=== PATIENT | male | born 1975 | race Two or more races ===

== ENCOUNTER 2017-02-10 22:23 | Observation (INO) | payer SELFPAY ==
[2017-02-10] MEDS ORDERED: Sodium Chloride 0.9% 1,000 ML IV STA (22:50)
--- NOTE | 2017-02-11 00:11 | ED PDOC ---
HPI: Psych/Substance Abuse Time Seen by Provider: 02/10/17 22:36 Chief Complaint (Nursing): Altered Mental Status Chief Complaint (Provider): alcohol intoxication ED Caveat: Intoxicated History/Exam Limitations: intoxication Additional Complaint(s): Found by police with his pants at his ankles, appeared intoxicated so ambulance called to bring patient to ER. Pt not providing any history. Past Medical History Reviewed: Nursing Documentation (and EMS report), Vital Signs Vital Signs: Last Vital Signs Temp 98.7 F 02/10/17 22:31 Pulse 98 H 02/10/17 22:31 Resp 18 02/10/17 22:31 BP 136/66 02/10/17 22:31 Pulse Ox 99 02/10/17 22:31 - Medical History Other PMH: unknown - Surgical History Other surgeries: Unknown - Family History Family History: States: Unknown Family Hx - Allergies Allergies/Adverse Reactions: Allergies Allergy/AdvReac Type Severity Reaction Status Date / Time No Known Allergies Allergy Unverified 03/14/14 15:22 Review of Systems Review Of Systems: ROS cannot be obtained secondary to pt's inabilty to answer questions. Physical Exam - Reviewed Nursing Documentation Reviewed: Yes Vital Signs Reviewed: Yes - Physical Exam Appears: Positive for: No Acute Distress (lethargic) Head Exam: Positive for: ATRAUMATIC, NORMOCEPHALIC Skin: Positive for: Normal Color (except for ruddiness of face), Warm, Dry Eye Exam: Positive for: Conjunctival injection ENT: Positive for: Other (tacky mucus membranes) Neck: Positive for: Painless ROM, Supple Cardiovascular/Chest: Positive for: Regular Rate, Rhythm, Chest Non Tender. Negative for: Murmur Respiratory: Negative for: Accessory Muscle Use, Respiratory Distress Gastrointestinal/Abdominal: Positive for: Soft. Negative for: Distended Back: Positive for: Normal Inspection. Negative for: Decreased ROM Extremity: Negative for: Pedal Edema, Deformity Lymphatic: Negative for: Adenopathy Neurologic/Psych: Positive for: Alert. Negative for: Motor/Sensory Deficits - Laboratory Results Result Diagrams: 02/10/17 23:59 02/10/17 23:59 - ECG O2 Sat by Pulse Oximetry: 99 Disposition - Clinical Impression Clinical Impression: Alcohol intoxication - Disposition Disposition: Transfer of Care Disposition Time: 00:00 Condition: STABLE Patient Signed Over To: Meño Welsh Handoff Comments: Pending sobriety, reassessmetn and final ER disposition
--- NOTE | 2017-02-11 00:18 | ED PDOC ---
- Laboratory Results Result Diagrams: 02/10/17 23:59 02/10/17 23:59 - ECG O2 Sat by Pulse Oximetry: 99 (RA) Pulse Ox Interpretation: Normal Medical Decision Making Medical Decision Making: *See ED-OBS tab for all documentation Scribe Attestation: Documented by Lulu Sorto, acting as a scribe for Meño Welsh MD Provider Scribe Attestation: All medical record entries made by the Scribe were at my direction and personally dictated by me. I have reviewed the chart and agree that the record accurately reflects my personal performance of the history, physical exam, medical decision making, and the department course for this patient. I have also personally directed, reviewed, and agree with the discharge instructions and disposition. Disposition Counseled Patient/Family Regarding: Diagnosis, Need For Followup - Clinical Impression Clinical Impression: Alcohol intoxication - POA Present On Arrival: None - Disposition Disposition: Routine/Home Disposition Time: 22:30 Condition: STABLE ED OBSERVATION Date of observation admission: 02/10/17 Time of observation admission: 22:30 - Observation admission statement Patient is being placed in observation because:: Alcohol intoxication - Goals of Observation Goals of observation are:: Clinical sobriety - Progress Note Progress Note: 02/11/17 Time: 0:00 --Patient is signed out by Dr. Bria Bernal MD to [place], pending labs and sobriety --Patient is resting comfortably. Vital signs stable. Time: 01:30 --Patient continues to rest. Vital signs stable. Time: 03:00 --Patient is resting. Vital signs stable. Time: 04:30 --Patient continues to rest. Vital signs stable. Time: 05:27 --Patient is ambulating in the ED and speaking in full sentences. Requesting to go home. --Patient appears clinically sober and is medically stable for discharge. Clinical Impression: Alcohol intoxication
[2017-02-11 00:20] LABS: BASO # 0.1 K/uL (0.0-0.2); BASO % 1.4 % (0.0-2.0); EOS # 0.2 K/uL (0.0-0.7); EOS % 2.2 % (0.0-4.0); LYMPH # 3.1 K/uL (1.0-4.3); LYMPH % 43.3 % (20.0-40.0); MEAN CELL VOLUME 91.9 fl (80.0-94.0); MEAN CORPUSCULAR HEMOGLOBIN 30.5 pg (27.0-31.0); MEAN CORPUSCULAR HGB CONC 33.2 g/dL (33.0-37.0); MEAN PLATELET VOLUME 8.5 fl (7.2-11.7); MONO # 0.6 K/uL (0.0-0.8); MONO % 8.1 % (0.0-10.0); NEUT # 3.2 K/uL (1.8-7.0); NRBC % 0.1 % (0.0-0.0); RED CELL DISTRIBUTION WIDTH 13.6 % (11.5-14.5); WHITE BLOOD COUNT 7.1 K/uL (4.8-10.8)
[2017-02-11 00:35] LABS: ALB/GLOB RATIO 1.4 (1.0-2.1); ALKALINE PHOSPHATASE 65 U/L (38-126); ALT/SGPT 63 U/L (21-72); AST/SGOT 54 U/L (17-59); BILIRUBIN,TOTAL 0.6 mg/dl (0.2-1.3); BLOOD UREA NITROGEN 13 mg/dl (9-20); CARBON DIOXIDE 22 mmol/L (22-30); CHLORIDE 105 mmol/L (98-107); GFR AFRICAN-AMERICAN > 60; GLUCOSE,RANDOM 107 mg/dL (75-110); POTASSIUM 3.4 MMOL/L (3.6-5.0); SODIUM 147 mmol/l (132-148); TOTAL PROTEIN 7.7 G/DL (6.3-8.2)
[2017-02-11 00:47] LABS: ALCOHOL SERUM 431 mg/dl (0-10)
[2017-02-11 05:58] VITALS: BP 136/79; PULSE 76; RESP 16; TEMP 98.6
[2017-02-11 18:51] VITALS: O2SAT 99
== END 2017-02-11 05:28 | disposition home or self-care (01) ==
LOC: H.ER 22:23 → H.EROBSV 22:30
PROVIDERS: ADMIT Emergency Medicine; ATTEND Emergency Medicine
DX: F10.129 Alcohol abuse with intoxication, unspecified (principal); Y90.8 Blood alcohol level of 240 mg/100 ml or more
CPT/HCPCS: 36415; 80053; 82948; 85025; 99283; G0378; G0480

== ENCOUNTER 2017-02-11 17:50 | Emergency (ER) | payer SELFPAY ==
[2017-02-11 17:57] VITALS: BP 141/83; PULSE 95; RESP 20; TEMP 98.1; O2SAT 99
--- NOTE | 2017-02-11 18:12 | ED PDOC ---
HPI: Psych/Substance Abuse Time Seen by Provider: 02/11/17 18:05 Chief Complaint (Nursing): Alcohol Ingestion Chief Complaint (Provider): alcohol intoxication Modifying Factor(s): Alcohol Additional Complaint(s): Pt reports to me he wants to leave. Denies homicidal or suicidal ideations. Seen yesterday for alcohol intoxication as well and discharged early this morning. Admits he has been continuing to drink today. Past Medical History Reviewed: Historical Data, Nursing Documentation, Vital Signs Vital Signs: Last Vital Signs Temp 98.1 F 02/11/17 17:54 Pulse 95 H 02/11/17 17:54 Resp 20 02/11/17 17:54 BP 141/83 02/11/17 17:54 Pulse Ox 99 02/11/17 17:54 - Family History Family History: States: Unknown Family Hx - Allergies Allergies/Adverse Reactions: Allergies Allergy/AdvReac Type Severity Reaction Status Date / Time No Known Allergies Allergy Unverified 03/14/14 15:22 Review of Systems Neurological: Negative for: Weakness, Numbness Psych: Negative for: Depression, Suicidal ideation Physical Exam - Reviewed Nursing Documentation Reviewed: Yes Vital Signs Reviewed: Yes - Physical Exam Appears: Positive for: No Acute Distress Head Exam: Positive for: ATRAUMATIC, NORMOCEPHALIC Skin: Positive for: Warm, Dry Extremity: Positive for: Normal ROM. Negative for: Deformity Neurologic/Psych: Positive for: Alert, Gait (steady). Negative for: Motor/ Sensory Deficits - ECG O2 Sat by Pulse Oximetry: 99 Disposition - Clinical Impression Clinical Impression: Alcohol abuse with intoxication - Disposition Disposition: Routine/Home Disposition Time: 18:14 Condition: STABLE Instructions: Alcohol Intoxication (ED), Alcohol Dependence (ED)
== END 2017-02-11 18:18 | disposition home or self-care (01) ==
LOC: H.ER 17:50
DX: F10.129 Alcohol abuse with intoxication, unspecified (principal)

== ENCOUNTER 2017-03-14 19:25 | Observation (INO) | payer SELFPAY ==
[2017-03-14 19:29] VITALS: TEMP 97.9
--- NOTE | 2017-03-14 20:52 | ED PDOC ---
HPI: Psych/Substance Abuse Time Seen by Provider: 03/14/17 19:30 Chief Complaint (Nursing): Alcohol Ingestion Chief Complaint (Provider): Alcohol Ingestion ED Caveat: Intoxicated History Per: Patient History/Exam Limitations: intoxication Onset/Duration Of Symptoms: Days (x 1) Current Symptoms Are (Timing): Still Present Modifying Factor(s): Alcohol Additional History Per: EMS Additional Complaint(s): John Holcomb is a 41 y/o male who was brought in by EMS for public intoxication. Patient is well known to the ED and this provider. Patient with slurred speech but steady gait. Full HPI was unobtainable due to patients condition. PMD: Unknown Past Medical History Reviewed: Historical Data, Nursing Documentation, Vital Signs Vital Signs: Last Vital Signs Temp 97.9 F 03/14/17 19:27 Pulse 71 03/14/17 19:27 Resp 18 03/14/17 19:27 BP 115/65 03/14/17 19:27 Pulse Ox 97 03/14/17 19:27 - Medical History PMH: No Chronic Diseases - Surgical History Surgical History: No Surg Hx - Family History Family History: States: Unknown Family Hx - Social History Alcohol: > 2 Drinks/Day - Allergies Allergies/Adverse Reactions: Allergies Allergy/AdvReac Type Severity Reaction Status Date / Time No Known Allergies Allergy Unverified 03/14/14 15:22 Review of Systems Review Of Systems: ROS cannot be obtained secondary to pt's inabilty to answer questions. Physical Exam - Reviewed Nursing Documentation Reviewed: Yes Vital Signs Reviewed: Yes - Physical Exam Appears: Positive for: Non-toxic, No Acute Distress Head Exam: Positive for: ATRAUMATIC, NORMOCEPHALIC Skin: Positive for: Normal Color, Warm, Dry Eye Exam: Positive for: EOMI, Normal appearance, PERRL Neck: Positive for: Normal Cardiovascular/Chest: Positive for: Regular Rate, Rhythm. Negative for: Murmur Respiratory: Positive for: Normal Breath Sounds. Negative for: Accessory Muscle Use, Respiratory Distress Gastrointestinal/Abdominal: Positive for: Normal Exam, Soft. Negative for: Tenderness Back: Positive for: Normal Inspection. Negative for: L CVA Tenderness, R CVA Tenderness, Vertebral Tenderness Extremity: Positive for: Normal ROM. Negative for: Pedal Edema, Deformity Neurologic/Psych: Positive for: Alert (and awake), Other (Slurred speech) - ECG O2 Sat by Pulse Oximetry: 97 (RA) Pulse Ox Interpretation: Normal Medical Decision Making Medical Decision Making: Time: 19:31 Impression: 41 y/o male with alcohol intoxication Initial Plan: --Accucheck --Alcohol serum --Patient admitted to ED-OBS for alcohol intoxication *See ED-OBS for further documentation Scribe Attestation: Documented by Lulu Sorto, acting as a scribe for Meño Welsh MD Provider Scribe Attestation: All medical record entries made by the Scribe were at my direction and personally dictated by me. I have reviewed the chart and agree that the record accurately reflects my personal performance of the history, physical exam, medical decision making, and the department course for this patient. I have also personally directed, reviewed, and agree with the discharge instructions and disposition. ED OBSERVATION Discharge: Yes Date of observation admission: 03/14/17 Time of observation admission: 20:04 - Observation admission statement Patient is placed on observation because of need: for serial examinations to determine stability for disposition - Goals of Observation Goals of Observation: Clinical sobriety - Progress Note Time:: 20:04 Observation Progress Note: Patient remains intoxicated with unsteady gait and slurred speech Progress Note: 03/15/17 21:30 Patient is resting comfortably 03/15/17 23:40 -Patient is awake, alert, oriented to 3. Patient has steady and fluent speech, is stable upon discharge home. Diagnosis: Alcohol intoxication Disposition - Clinical Impression Clinical Impression: Alcohol intoxication - Disposition Disposition: Routine/Home Disposition Time: 23:40 Condition: STABLE
[2017-03-15 01:13] VITALS: BP 112/80; PULSE 78; RESP 16; O2SAT 99
== END 2017-03-15 00:06 | disposition home or self-care (01) ==
LOC: H.ER 19:25 → H.EROBSV 20:04
PROVIDERS: ADMIT Emergency Medicine; ATTEND Emergency Medicine
DX: F10.129 Alcohol abuse with intoxication, unspecified (principal); Y90.8 Blood alcohol level of 240 mg/100 ml or more
CPT/HCPCS: 36415; 82948; 99283; G0378; G0480

== ENCOUNTER 2018-05-12 17:54 | Emergency (ER) | payer SELFPAY ==
[2018-05-12 18:00] VITALS: RESP 16
[2018-05-12 21:05] LABS: BARBITURATES, UR NEGATIVE (NEGATIVE); BENZODIAZEPINES, UR NEGATIVE (NEGATIVE); OPIATES, UR NEGATIVE (NEGATIVE); PHENCYCLIDINE, UR NEGATIVE (NEGATIVE)
--- NOTE | 2018-05-12 21:40 | ED PDOC ---
HPI: Psych/Substance Abuse Time Seen by Provider: 05/12/18 18:28 Chief Complaint (Nursing): Alcohol Ingestion Chief Complaint (Provider): Alcohol Ingestion History Per: Patient History/Exam Limitations: no limitations Modifying Factor(s): Alcohol Involuntary Hold By: Local Law Enforcement Additional Complaint(s): 42 y/o male with history of alcohol abuse who was brought to the ED by [place] [employer] is under arrest after being found intoxicated on the street. Patient states that he feels fine and does not recall falling or any head trauma. Denies headache, dizziness, visual changes. He further denies history of HTN, HLD, diabetes. Patient states he has no physical complaints. Patient is behaving inappropriately and verbally abusive when speaking to practitioner. Past Medical History Reviewed: Historical Data, Nursing Documentation, Vital Signs Vital Signs: Last Vital Signs Temp 97.2 F L 05/12/18 17:57 Pulse 88 05/12/18 17:57 Resp 16 05/12/18 17:57 BP 147/89 05/12/18 17:57 Pulse Ox 98 05/12/18 17:57 - Medical History Other PMH: alcohol abuse - Family History Family History: States: Unknown Family Hx - Social History Current smoker - smoking cessation education provided: No Ex-Smoker (has not smoked in the last 12 months): No Alcohol: > 2 Drinks/Day Drugs: Denies - Allergies Allergies/Adverse Reactions: Allergies Allergy/AdvReac Type Severity Reaction Status Date / Time No Known Allergies Allergy Verified 05/12/18 17:57 Review of Systems ROS Statement: Except As Marked, All Systems Reviewed And Found Negative Eyes: Negative for: Vision Change Neurological: Negative for: Headache, Dizziness Physical Exam - Reviewed Nursing Documentation Reviewed: Yes Vital Signs Reviewed: Yes - Physical Exam Appears: Positive for: No Acute Distress Head Exam: Positive for: ATRAUMATIC, NORMOCEPHALIC Eye Exam: Positive for: Conjunctival injection (bilateral), Other (mild superficial abrasion above and below left eye with mild serosanguinous drainage and no laceration or puncture noted) Neck: Positive for: Painless ROM Cardiovascular/Chest: Positive for: Regular Rate, Rhythm. Negative for: Murmur Respiratory: Positive for: Other (patient refused lung exam) Extremity: Positive for: Normal ROM Neurologic/Psych: Positive for: Alert, Oriented, Aphasia (slurred speech), Other (verbally abusive to practitioner). Negative for: Motor/Sensory Deficits - ECG O2 Sat by Pulse Oximetry: 98 (RA) Pulse Ox Interpretation: Normal Medical Decision Making Medical Decision Making: Time: 20:25 Initial Impression: alcohol intoxication Initial Plan: * CT Head * CT Maxillofacial * Serum Alcohol * Accucheck * Urine dip * Crisis evaluation patient is refusing CT scan Serum alcohol 372 at 20:40 --- Scribe Attestation: Documented by Wong Castro, acting as a scribe for Lissette Spence PA-C. Provider Scribe Attestation: All medical record entries made by the Scribe were at my direction and personally dictated by me. I have reviewed the chart and agree that the record accurately reflects my personal performance of the history, physical exam, medical decision making, and the department course for this patient. I have also personally directed, reviewed, and agree with the discharge instructions and disposition. 00:00: pt endorsed to [facility] pending clinical sobriety, re-evaluation and crisis evaluation. Disposition - Clinical Impression Clinical Impression: Alcohol abuse with alcohol-induced disorder - Patient ED Disposition Is Patient to be Admitted: Transfer of Care - Disposition Disposition: Transfer of Care Disposition Time: 00:00 Condition: STABLE Forms: [employer] (Salvadorean)
--- NOTE | 2018-05-13 01:58 | ED PDOC ---
- ECG O2 Sat by Pulse Oximetry: 98 (RA) Pulse Ox Interpretation: Normal Medical Decision Making Medical Decision Making: Crisis evaluation completed. 0200 - Pt re-evaluated. Clear speech. Pt denies headache, N/V. Pt denies neck pain. Pt with superficial abrasion on face. No ecchymosis. No scalp hematoma. Heart RR, lungs clear, abdomen non-tender. Denies SI/HI Disposition - Clinical Impression Clinical Impression: Alcohol abuse with alcohol-induced disorder - POA Present On Arrival: None - Disposition Disposition: Routine/Home Disposition Time: 20:00 Condition: STABLE Additional Instructions: Pt medically and psychiatrically cleared for incarceration. Instructions: Effects of Alcohol on Your Health Forms: [facility] (Arabic)
[2018-05-13 02:21] VITALS: BP 135/61; PULSE 78; TEMP 98.7; O2SAT 95
== END 2018-05-13 02:15 ==
LOC: H.ER 17:54
DX: F10.19 Alcohol abuse with unspecified alcohol-induced disorder (principal); Y90.8 Blood alcohol level of 240 mg/100 ml or more
CPT/HCPCS: 82948; 99284; G0480

== ENCOUNTER 2018-10-30 14:01 | Emergency (ER) | payer SELFPAY ==
[2018-10-30 14:03] VITALS: BMI 29.2
--- NOTE | 2018-10-30 15:09 | ED PDOC ---
HPI: Psych/Substance Abuse Time Seen by Provider: 10/30/18 14:14 Chief Complaint (Nursing): Alcohol Ingestion Chief Complaint (Provider): alcohol intoxication History Per: Patient, EMS History/Exam Limitations: intoxication Onset/Duration Of Symptoms: Hrs Current Symptoms Are (Timing): Still Present Modifying Factor(s): Alcohol Associated Symptoms: denies: Anger, Anxiety, Agitation, Depression, Paranoia, Suicidal Thoughts, Suicidal Plan Additional History Per: Patient Additional Complaint(s): 42 year old male brought in by EMS for alcohol intoxication after he was found on the side walk sleeping. patient states he fell asleep in front of a store on [address]. He reports he was drinking "soda" today. Denies alcohol use to provider. As per triage note patient admitted to drinking "beers and shots". Positive for alcohol smelled on breath. Patient is well known to ED for alcohol intoxication. Patient denies falling or physical complaints. Past Medical History Reviewed: Historical Data, Nursing Documentation, Vital Signs Vital Signs: Last Vital Signs Temp 97.9 F 10/30/18 14:03 Pulse 78 10/30/18 14:03 Resp 16 10/30/18 14:03 BP 117/64 10/30/18 14:03 Pulse Ox 99 10/30/18 14:03 LETICIA Report Viewed: Yes Primary Care Provider: FAMILY PROVIDER,NO - Medical History PMH: Denies: Diabetes, Hepatitis, HIV, HTN, Chronic Kidney Disease, Seizures, Sexually Transmitted Disease - Surgical History Surgical History: No Surg Hx - Family History Family History: States: Unknown Family Hx - Living Arrangements Living Arrangements: Alone - Social History Alcohol: > 2 Drinks/Day - Immunization History Hx Tetanus Toxoid Vaccination: No - Home Medications Home Medications: Ambulatory Orders Medication Instructions Recorded Unobtainable 10/20/18 - Allergies Allergies/Adverse Reactions: Allergies Allergy/AdvReac Type Severity Reaction Status Date / Time No Known Allergies Allergy Verified 10/30/18 14:05 Physical Exam - Reviewed Nursing Documentation Reviewed: Yes Vital Signs Reviewed: Yes - Physical Exam Appears: Positive for: Non-toxic, No Acute Distress Head Exam: Positive for: NORMAL INSPECTION (noted healign abrasion to the head (anterior parietal aspect) noted 10/26 patient was taken to [facility] for intox and fall with head injury. Ct head at that time was negative.), NORMOCEPHALIC Skin: Positive for: Normal Color, Warm, Dry Eye Exam: Positive for: Normal appearance, EOMI, PERRL ENT: Positive for: Normal ENT Inspection Neck: Positive for: Normal Cardiovascular/Chest: Positive for: Regular Rate, Rhythm, Chest Non Tender Respiratory: Positive for: Normal Breath Sounds Pulses-Radial (L): 2+ Pulses-Radial (R): 2+ Gastrointestinal/Abdominal: Positive for: Normal Exam Male Genital Exam: Negative for: normal genitalia Back: Positive for: Normal Inspection Rectal: Negative for: Deferred Extremity: Positive for: Normal ROM Neurological/Psych: Positive for: Awake, Alert, Normal Tone, Oriented. Negative for: Lethargic - ECG O2 Sat by Pulse Oximetry: 99 Medical Decision Making Medical Decision Making: accucheck -92 alcohol level -154 16:56 Patient sleeping, easily arousable, will monitor for sobriety. 17:20 Patient is awake, tolerated PO and is ambulating with a steady gait. Patient stable for discharge home. Return to ED precautions given. patient states understanding and agrees with plan. Disposition - Clinical Impression Clinical Impression: Alcohol dependence - Patient ED Disposition Is Patient to be Admitted: No Counseled Patient/Family Regarding: Diagnosis - Disposition Disposition: Routine/Home Disposition Time: 17:20 Condition: STABLE Instructions: Alcohol Use - When Is Drinking a Problem? Forms: [facility] (German) Print Language: YAKUT - POA Present On Arrival: None
[2018-10-30 17:39] VITALS: BP 120/78; PULSE 70; RESP 20; TEMP 98; O2SAT 98
== END 2018-10-30 17:39 | disposition home or self-care (01) ==
LOC: H.ER 14:01
DX: F10.229 Alcohol dependence with intoxication, unspecified (principal); Y90.6 Blood alcohol level of 120-199 mg/100 ml
CPT/HCPCS: 82948; 99283; G0480